=== PATIENT | male | born 1985 | race Caucasian/White ===

== ENCOUNTER 2017-01-01 12:09 | Emergency (ER) | payer OTHER ==
[~2017-01-01] VITALS: Ht 188 cm; Wt 90.7 kg
[2017-01-01 12:45] VITALS: BP 144/74
[2017-01-01] MEDS ORDERED: BACI500O8 TOP (14:12)
[2017-01-01] MEDS ORDERED: POLYSPORIN TOPICAL OINTMENT 15GM As Ordered ONE (14:16)
[2017-01-01] MEDS ORDERED: BACITRACIN OINT 30GM TOP SCH (21:00)
== END 2017-01-01 14:33 | disposition home or self-care (01) ==
LOC: M ED 14:14
DX: T22.292A Burn of second degree of multiple sites of left shoulder and upper limb, except wrist and hand, initial encounter (principal); T23.202A Burn of second degree of left hand, unspecified site, initial encounter; T22.291A Burn of second degree of multiple sites of right shoulder and upper limb, except wrist and hand, initial encounter; T31.0 Burns involving less than 10% of body surface; X00.0XXA Exposure to flames in uncontrolled fire in building or structure, initial encounter; Y92.099 Unspecified place in other non-institutional residence as the place of occurrence of the external cause; Y93.89 Activity, other specified; Y99.9 Unspecified external cause status; Z88.2 Allergy status to sulfonamides